=== PATIENT | male | born 1940 | race Caucasian/White ===

== ENCOUNTER 2025-02-14 19:20 | Emergency (ER) | payer MEDICARE, BC, SELFPAY ==
[2025-02-14 19:25] VITALS: BP 126/60
[2025-02-14 19:43] LABS: % Basophils 0.9 % (0-2); % Eosinophils 2.8 % (0-6); % Immature Granulocytes 0.4 % (0-0.5); % Lymphocytes 31.2 % (20.5-51.1); % Monocytes 7.3 % (1.7-9.3); % Neutrophils 57.4 % (42.2-75.2); Absolute Basophils 0.1 10^3/uL (0-0.2); Absolute Eosinophils 0.2 10^3/uL (0-0.7); Absolute Lymphocytes 2.3 10^3/uL (1.2-3.4); Absolute Monocytes 0.6 10^3/uL (0.1-0.6); Absolute Neutrophils 4.3 10^3/uL (1.4-6.5); Hematocrit 37.6 % (39.0-52.0); Hemoglobin 13.4 g/dL (13.0-18.0); Mean Corp Hgb Conc. 35.6 g/dL (33.0-37.0); Mean Corpuscular Hgb 30.7 pg (27.0-31.0); Mean Corpuscular Volume 86.2 fL (80.0-94.0); Nucleated Red Blood Cells % 0 % (-); Platelet Count 142 10^3/uL (130-400); Red Blood Cell Count 4.36 10^6/uL (4.70-6.10); Red Cell Dist. Width 13.7 % (11.5-14.5); White Blood Cell Count 7.5 10^3/uL (4.8-10.8)
[2025-02-14 19:53] LABS: Urine Albumin 3+ (Neg - Trace); Urine Bilirubin Negative (Negative); Urine Character Cloudy (Clear); Urine Color Amber; Urine Glucose 1+ (Negative); Urine Ketone 1+ (Negative); Urine Leukocyte 2+ (Negative); Urine Nitrite Positive (Negative); Urine Occult Blood 4+ (Negative); Urine Specific Gravity 1.025 (<1.030); Urine Urobilinogen 1+ (Neg - 1+)
[2025-02-14 20:03] LABS: ALT (SGPT) 12 U/L (0-50); AST (SGOT) 17 U/L (17-59); Albumin 4.2 g/dl (3.5-5.0); Alkaline Phosphatase 50 U/L (38-126); Blood Urea Nitrogen 29 mg/dl (9-20); Calcium 9.8 mg/dl (8.4-10.2); Carbon Dioxide 25 mmol/L (22-30); Chloride 106 mmol/L (98-107); Glucose 198 mg/dl (70-99); Potassium 4.9 mmol/L (3.5-5.1); Sodium 142 mmol/L (135-145); Total Bilirubin 0.8 mg/dl (0.2-1.3); Total Protein 6.7 g/dl (6.3-8.2); eGFR > 60.00
[2025-02-14 20:13] LABS: Urine Squamous Cell 16-20 /LPF (Few)
[2025-02-14 20:14] LABS: Urine Bacteria Many (Negative); Urine Red Blood Cell >100 /HPF (0-2)
--- NOTE | 2025-02-14 20:24 | ED.GENMED ---
History of Present Illness
General
Chief Complaint: Urinary Symptoms
Source: patient
Time Seen by Provider: 02/14/25 20:05
History of Present Illness
History of Present Illness:
85-year-old male with past medical history of hypertension, hyperlipidemia and oej-xikebnr-ymsttpkbo diabetes presenting to the emergency department for evaluation after he started with urinary frequency/urgency and hematuria around 3 PM this
afternoon with symptoms continuing prompting him to come to the ER. Patient states that he had a kidney stone a little while back but states he had a lot of discomfort with this and states the symptoms seem to be different. He denies any history
of urinary tract infections or prostate infections. He is also denying any fevers, chills, rigors, back or flank pain nausea, vomiting, use of anticoagulants or any other concerns. Patient denies any history of cigarette or tobacco use. No family
history of genitourinary cancers.
Past History
Past History
ED Past Medical History: HTN, Hypercholesterolemia and NIDDM
ED Past Surgical History: Orthopedic
Social History
Tobacco: Non-smoker
Alcohol: Occasional
Drug: None
Personal:
Living: with family
Review of Systems
Review of Systems
All Other Systems: ROS reviewed and negative except as documented in HPI and ROS
Phy Exam
Physical Exam
Physical Exam:
GENERAL: Alert , in no apparent distress, smiling and pleasant
EYE: clear conjunctiva b/l
HEAD: NCAT
ENT: o/p clr, mmm.
CARDIAC: Regular rate and rhythm .
LUNGS: Clear breath sounds bilaterally, no acute respiratory distress, no wheezes/rales/rhonchi
ABDOMEN: Soft, without focal tenderness, no r/g, no cvat
NEUROLOGICAL: Alert and oriented
SKIN: Warm and dry, skin intact.
MUSCULOSKELETAL: well perfused.
PSYCH: Normal and appropriate interaction.
Scores
Heart Failure Risk
Heart Failure Risk Score: Not Applicable
Heart Score for Chest Pain Patients
STEMI patient?: Not applicable
Withdrawal Assessment of Alcohol
Withdrawal Assessment Completed?: Not applicable
Course
Orders/Labs/Results
Orders:
Orders
02/14/25 19:36
Complete Blood Count/With Diff Urgent
Comprehensive Metabolic Panel Urgent
UA Reflex to Culture [Urinalysis Reflex To Culture] Urgent
Date Specimen was Collected: 02/14/25
Time Specimen was Collected: :
Urine Microscopic Reflex Cult Urgent
Urine Culture Urgent
CARMELLA Source: U
Specimen Description:
Date Specimen was Collected: 02/14/25
Time Specimen was Collected: :
02/14/25 20:19
CT Abd/pel Without Iv Or Oral Urgent
Comment:
Reason For Exam: hematuria, dysuria, hx stones
02/14/25 20:20
Cephalexin Monohydrate [Keflex] 500 mg PO NOW STA
Abnormal Lab Results
02/14/25
19:36
RBC 4.36 L 10^6/uL
(4.70-6.10)
Hct 37.6 L %
(39.0-52.0)
BUN 29 H mg/dl
(9-20)
Glucose 198 H mg/dl
(70-99)
Urine Ketones 1+ A
(Negative)
Ur Occult Blood Reflex 4+ A
(Negative)
Urine Nitrite (Reflex) Positive A
(Negative)
Leukocyte Esterase Rfl 2+ A
(Negative)
Urine RBC >100 A /HPF
(0-2)
Urine Bacteria (Reflex) Many A
(Negative)
Urine Glucose 1+ A
(Negative)
Urine Albumin (Reflex) 3+ A
(Neg - Trace)
02/14/25 19:36
02/14/25 19:36
Vital Signs
Initial and Last Documented VS:
Initial Vital Signs
Temp Pulse Resp BP Pulse Ox
98.4 F 70 18 126/60 97
02/14/25 19:25 02/14/25 19:25 02/14/25 19:25 02/14/25 19:25 02/14/25 19:25
Last Documented Vital Signs
Temp Pulse Resp BP Pulse Ox
98.4 F 62 18 122/78 98
02/14/25 19:25 02/14/25 22:42 02/14/25 22:42 02/14/25 22:42 02/14/25 22:42
MDM/Problems Addressed
Differential Diagnosis Includes:
Urinary tract infection/hemorrhagic cystitis, malignancy, less concern for pyelonephritis and renal/ureteral colic
MDM/Problems Addressed:
85-year-old male presenting to the ER for evaluation of relatively sudden onset urinary frequency/urgency and hematuria which started this afternoon. Patient without any use of blood thinners, hemodynamically stable and he is in no acute distress
or pain. Labs initiated on arrival show a stable hemoglobin of 13. Creatinine is within normal limits. Urinalysis does show nitrite positive and 2+ leukocyte urine. There is only 6-10 WBCs but given symptoms I do suspect component of a urinary
tract infection. Given his history of kidney stones will still obtain CT scan to ensure no stone or other abnormalities. Patient will likely need close urology follow-up as an outpatient.
*Radiology
Radiology exam reviewed: radiology read reviewed
*Pulse Oximetry
Patient hypoxic: no
*Critical Care Note
Total Time (30-74mins, 75-104mins- exclusive of procedures): Not Applicable
Data Reviewed
Review of Other/Old Records Reveals: Labs
Source: patient
Patient Management
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
Escalation/DeEscalation of care consider admission/obs:
Patient CT scan does show a 2.7 mm proximal ureteral stone with mild to moderate hydroureteronephrosis. Given his urine findings I did discuss the case with urology who feels it is reasonable for the patient to trial of passage of the stone at
home. Will treat with antibiotics and Flomax. Urology outpatient information provided for follow-up. Patient advised on return precautions to the ER and ultimately he does feel comfortable being discharged home.
ED Attending Note
-
Portions of this chart may have been created with voice recognition software.� Occasional wrong word or��sound alike� substitutions may have occurred due to the inherent limitations of voice recognition software.
Discharge Plan
Departure
Patient Disposition: Home (Routine Discharge)
Date of Disposition: 02/14/25
Time of Disposition: 22:48
Patient with high blood pressure during this ER visit?: No
Discharge Problem:
Kidney stone, Acute UTI
Instructions: Urinary Tract Infection, Adult (DC), Kidney stones in adults - ED discharge instructions
Prescriptions:
New
cephalexin 500 mg tablet
500 mg PO BID 7 Days Qty: 14 0RF
tamsulosin [Flomax] 0.4 mg capsule
0.4 mg PO DAILY Qty: 10 0RF
No Action
metformin 500 MG tablet extended release 24 hr
500 mg PO QPM
rosuvastatin 10 MG tablet
10 mg PO QPM
multivitamin [One-A-Day Essential] 1 EACH tablet
1 ea PO DAILY
metformin 500 MG tablet
1,000 mg PO DAILY
tetrahydrozoline [Eye Drops (tetrahydrozoline)] 15 ML drops
1 drp BOTH EYES BID
Exforge
1 tab PO DAILY
Vitamin B
1 tab PO DAILY
cephalexin 500 MG capsule
500 mg PO BID Qty: 20 0RF
Referrals:
Jackie Ford MD [Family Provider] -
Isaac Walters MD [Active] - (Urology - Please call for appointment)
Interventions
Interventions:
*Risk Screen - Suicide Last Done: 02/14/25 19:25
*General Assessment Last Done: 02/14/25 19:25
*Neglect/Abuse Screening Last Done: 02/14/25 19:25
*Nursing Disposition Last Done: 02/14/25 23:14
ED-Male Genitourinary Assessment Last Done: 02/14/25 21:54
Discharge Date and Time
Discharge Date/Time: 02/14/25 23:14
Print Language: ARABIC
[2025-02-14] MEDS: KEFLEX 500 MG PO (20:38)
[2025-02-14 22:42] VITALS: BP 122/78
== END 2025-02-14 23:14 | disposition home or self-care (01) ==
LOC: EMR 19:20
PROVIDERS: Emergency Medicine; EMERGENCY PHYSICIAN Emergency Medicine; FAMILY PHYSICIAN Family Medicine
DX: N13.6 Pyonephrosis (principal); I10 Essential (primary) hypertension; E11.9 Type 2 diabetes mellitus without complications; E78.00 Pure hypercholesterolemia, unspecified; Z87.442 Personal history of urinary calculi; Z91.030 Bee allergy status
CPT/HCPCS: 99284; 74176; 80053; 81003; 81015; 85025; 87086